=== PATIENT | female | born 1990 | race Caucasian/White ===

== ENCOUNTER 2020-08-22 23:35 | Emergency (ER) | payer OTHER ==
[~2020-08-22] VITALS: Ht 175.3 cm; Wt 65.9 kg
--- NOTE | 2020-08-23 00:02 | PHYS DOC ---
Adult General HPI HPI Patient is a 29-year-old female, who presents with a chief complaint of 4 days of fatigue, muscle aches nausea and abdominal cramping. States that she got her second Covid vaccination 4 days ago and it started shortly after that. States she is felt warm at home but has not taken her temperature. States she had 2 e pisodes of nausea and vomiting, nonbloody nonbilious yesterday. States she is felt nauseous since then but has not thrown up. Denies chest pain, shortness of breath, dysuria, hematuria or blood in the stool. States she is making urine and stool normally for her. States she does have a decreased appetite but has been trying to nibble on things and drink some water over the last couple of days. States she tried some Tylenol yesterday but that is all the medicine she is taking. States she is on control and has not had a. In well over a year. Denies any alcohol or drug use. Review of Systems Review of Systems Review of systems otherwise unremarkable except noted in HPI Physical Exam Physical Exam Constitutional: Well developed, well nourished, no acute distress, non-toxic appearance. [] HENT: Normocephalic, atraumatic, oropharynx dry, no oral exudates, nose normal. [] Eyes: conjunctiva normal, no discharge. [] Neck: Normal range of motion, no tenderness, Cardiovascular: Sinus tachycardia Lungs & Thorax: Bilateral breath sounds clear to auscultation [] Abdomen: Bowel sounds normal, patient's belly is soft except for a spot just inferior to umbilicus, there is an area of tenderness and appears to be a mass of some sort Skin: Warm, dry, no erythema, no rash. [] Back: No tenderness, no CVA tenderness. [] Extremities: No tenderness, no cyanosis, no clubbing, ROM intact, no edema. [] Neurologic: Alert and oriented X 3, normal motor function, normal sensory function, no focal deficits noted. [] Psychologic: Affect normal, judgement normal, mood normal. [] Current Patient Data Lab Results Laboratory Tests Test 08/22/20 23:45 08/23/20 00:15 08/23/20 00:40 Urine Collection Type Unknown Urine Color Yellow Urine Clarity Clear Urine pH 7.0 Urine Specific [place] 1.010 Urine Protein Neg (NEG-TRACE) Urine Glucose (UA) Neg mg/dL (NEG) Urine Ketones (Stick) 15 mg/dL (NEG) Urine Blood Neg (NEG) Urine Nitrite Neg (NEG) Urine Bilirubin Neg (NEG) Urine Urobilinogen Dipstick 0.2 mg/dL (0.2 mg/dL) Urine Leukocyte Esterase Trace (NEG) Urine RBC 0 /HPF (0-2) Urine WBC 5-10 /HPF (0-4) Urine Squamous Epithelial Cells Few /LPF Urine Bacteria Few /HPF (0-FEW) Bedside Urine HCG, Qualitative hcg negative (Negative) White Blood Count 8.6 x10^3/uL (4.0-11.0) Red Blood Count 5.07 x10^6/uL (3.50-5.40) Hemoglobin 15.3 g/dL (12.0-15.5) Hematocrit 44.3 % (36.0-47.0) Mean Corpuscular Volume 87 fL (79-100) Mean Corpuscular Hemoglobin 30 pg (25-35) Mean Corpuscular Hemoglobin Concent 35 g/dL (31-37) Red Cell Distribution Width 12.1 % (11.5-14.5) Platelet Count 217 x10^3/uL (140-400) Neutrophils (%) (Auto) 74 % (31-73) Lymphocytes (%) (Auto) 18 % (24-48) Monocytes (%) (Auto) 7 % (0-9) Eosinophils (%) (Auto) 1 % (0-3) Basophils (%) (Auto) 0 % (0-3) Neutrophils # (Auto) 6.4 x10^3uL (1.8-7.7) Lymphocytes # (Auto) 1.5 x10^3/uL (1.0-4.8) Monocytes # (Auto) 0.6 x10^3/uL (0.0-1.1) Eosinophils # (Auto) 0.0 x10^3/uL (0.0-0.7) Basophils # (Auto) 0.0 x10^3/uL (0.0-0.2) Sodium Level 140 mmol/L (136-145) Potassium Level 3.3 mmol/L (3.5-5.1) Chloride Level 103 mmol/L (98-107) Carbon Dioxide Level 25 mmol/L (21-32) Anion Gap 12 (6-14) Blood Urea Nitrogen 7 mg/dL (7-20) Creatinine 0.8 mg/dL (0.6-1.0) Estimated GFR (Cockcroft-Gault) 85.4 Glucose Level 104 mg/dL (70-99) Calcium Level 9.5 mg/dL (8.5-10.1) EKG EKG [] Radiology/Procedures Radiology/Procedures []FINDINGS: Visualized portions of the lung bases are clear. Heart size is within normal limits. No suspicious hepatic masses are identified. Liver is homogeneous in enhancement with 2.5 cm medial segment left hepatic lobe simple cyst. There is an indeterminate hypoattenuating lesion measuring 9 mm in the posterior right hepatic lobe (series 2, image 23).. Spleen, adrenal glands, pancreas and gallbladder are normal in appearance. The kidneys enhance symmetrically. There is no suspicious renal mass. There is no hydronephrosis. There are no suspected calculi within the kidneys, ureters or urinary bladder. The abdominal aorta is normal in course and caliber. There are no pathologically enlarged lymph nodes in the abdomen and pelvis. There is no abdominal free fluid. There is no free intraperitoneal air. Small volume pelvic free fluid. This is normal in appearance. Follicular changes are identified in the adnexa. Small and large bowel are normal in caliber. There is no evidence for bowel obstruction. There are no pericolonic inflammatory changes. A normal, nondilated appendix is visualized without adjacent inflammatory changes. No suspicious osseous abnormality is identified. IMPRESSION: 1. Trace free fluid within the pelvis may be physiologic. Follicular changes are identified the adnexa bilaterally. 2. Appendix is normal in appearance. 3. Indeterminate hypoattenuating lesion in the right hepatic lobe measuring 9 mm. Further characterization with abdominal MRI with and without contrast could be of benefit. Differential considerations include hemangioma or hepatic adenoma. There is additional simple cyst in the medial segment left hepatic lobe. Electronically signed by: Zeynep Archibald MD (08/23/2020 1:23 AM) [facility] Heart Score Risk Factors: Risk Factors: DM, Current or recent (<one month) smoker, HTN, HLP, family history of CAD, obesity. Risk Scores: Risk Factors: DM, Current or recent (<one month) smoker, HTN, HLP, family history of CAD, obesity. Course & Med Decision Making Course & Med Decision Making Patient is a 29-year-old female who presents with 4 days of fatigue, myalgias, nausea and vomiting and abdominal cramping Vital signs notable for tachycardia. Physical exam noted above. Patient placed on the monitor with IV access established and IV fluid began. Given Zofran for nausea and morphine for pain. Laboratory analysis not concerning. CT of the abdomen with no acute process did show some physiologic fluid in the pelvis and some adnexal follicular change but otherwise unremarkable. On reassessment patient stated she felt 100% better and felt safe to discharge home. Discussed all findings with patient and family. Advised calling [facility] today to discuss adnexal/follicular changes and given printout of CT. Advised to call primary care physician as well to make a follow-up appointment. Advised to come back to the ED with new or concerning symptoms. Family grateful, verbalized understanding and agreed with plan of ashok de la o. [] Dragon Disclaimer Dragon Disclaimer This electronic medical record was generated, in whole or in part, using a voice recognition dictation system. Departure Departure: Impression: Primary Impression: Abdominal pain Additional Impressions: Fatigue Myalgia Nausea & vomiting Disposition: 01 DC HOME SELF CARE/HOMELESS Condition: GOOD Referrals: KARINA ODONNELL DO (PCP) Patient Instructions: Abdominal Pain (Nonspecific) Additional Instructions: Please read the attached information. As discussed, please call your [facility] first thing this morning to discuss ED visit and set up a post ER follow-up visit to discuss CT findings. You are given copy of your CT report. Over the next couple of days please eat a light clear diet and stay well-hydrated. Please also contact your primary care physician to set up a post ER follow-up visit. Please come back to the emergency department immediately with any new or concerning symptoms. Problem Qualifiers ROYS JOHNS MD Aug 23, 2020 00:01
[2020-08-23] MEDS ORDERED: IV RINGERS SOLUTION,LACTATED 1,000 ML IV ONE (00:30)
[2020-08-23] MEDS ORDERED: ONDANSETRON PF 4 MG/2 ML VIAL. IVP ONE (00:30)
[2020-08-23] MEDS: MORPHINE SULFATE 4 MG/ML DISP.SYRIN. IV ONE ×2 (00:30→00:42)
[2020-08-23] MEDS ORDERED: IOHEXOL 300 MG/ML 75 ML VIAL. IV ONE (00:45)
[2020-08-23] MEDS ORDERED: CONTRAST GIVEN. MC PRN (00:45)
[2020-08-23 00:53] LABS: BACTERIA,URINE FEW /HPF (0-FEW); BILIRUBIN,URINE NEG (NEG); CLARITY,URINE CLEAR; COLOR,URINE YELLOW; GLUCOSE,URINE NEG (NEG); NITRITE,URINE NEG (NEG); RBC,URINE 0 /HPF (0-2); SQUAMOUS EPITHELIAL CELL,UR FEW /LPF; UROBILINOGEN,URINE 0.2 mg/dL (0.2 mg/dL)
[2020-08-23 01:01] LABS: BASO % 0 % (0-3); EOS % 1 % (0-3); HEMATOCRIT 44.3 % (36.0-47.0); HEMOGLOBIN 15.3 g/dL (12.0-15.5); LYMPH # 1.5 x10^3/uL (1.0-4.8); LYMPH % 18 % (24-48); MEAN CORPUSCULAR HEMOGLOBIN 30 pg (25-35); MEAN CORPUSCULAR HGB CONC 35 g/dL (31-37); MEAN CORPUSCULAR VOLUME 87 fL (79-100); MONO # 0.6 x10^3/uL (0.0-1.1); MONO % 7 % (0-9); NEUT # 6.4 x10^3uL (1.8-7.7); NEUT % 74 % (31-73); PLATELET COUNT 217 x10^3/uL (140-400); RED BLOOD COUNT 5.07 x10^6/uL (3.50-5.40); RED CELL DISTRIBUTION WIDTH 12.1 % (11.5-14.5); WHITE BLOOD COUNT 8.6 x10^3/uL (4.0-11.0)
[2020-08-23 01:08] LABS: CALCIUM 9.5 mg/dL (8.5-10.1); CREATININE 0.8 mg/dL (0.6-1.0); GFR 85.4; POTASSIUM 3.3 mmol/L (3.5-5.1)
--- NOTE | 2020-08-23 01:25 | RAD ---
PQRS Compliance Statement: One or more of the following individualized dose reduction techniques were utilized for this examinat ion: 1. Automated exposure control 2. Adjustment of the mA and/or kV according to patient size 3. Use of iterative reconstruction technique CT abdomen/pelvis with contrast 08/23/2020 12:52 AM INDICATION: Abdominal pain COMPARISON: None available TECHNIQUE: Multiple axial CT images of the abdomen and pelvis were obtained after the intravenous adm inistration of 75 mL Omnipaque 300. Coronal and sagittal reformats are provided. FINDINGS: Visualized portions of the lung bases are clear. Heart size is within normal limits. No suspicious hepatic masses are identified. Liver is homogeneous in enhancement with 2.5 cm medial s egment left hepatic lobe simple cyst. There is an indeterminate hypoattenuating lesion measuring 9 mm in the posterior right hepatic lobe (series 2, image 23).. Spleen, adrenal glands, pancreas and gall bladder are normal in appearance. The kidneys enhance symmetrically. There is no suspicious renal mas s. There is no hydronephrosis. There are no suspected calculi within the kidneys, ureters or urinary bladder. The abdominal aorta is normal in course and caliber. There are no pathologically enlarged ly mph nodes in the abdomen and pelvis. There is no abdominal free fluid. There is no free intraperitone al air. Small volume pelvic free fluid. This is normal in appearance. Follicular changes are identifi ed in the adnexa. Small and large bowel are normal in caliber. There is no evidence for bowel obstruc tion. There are no pericolonic inflammatory changes. A normal, nondilated appendix is visualized with out adjacent inflammatory changes. No suspicious osseous abnormality is identified. IMPRESSION: 1. Trace free fluid within the pelvis may be physiologic. Follicular changes are identified the adnex a bilaterally. 2. Appendix is normal in appearance. 3. Indeterminate hypoattenuating lesion in the right hepatic lobe measuring 9 mm. Further characteriz ation with abdominal MRI with and without contrast could be of benefit. Differential considerations i nclude hemangioma or hepatic adenoma. There is additional simple cyst in the medial segment left hepa tic lobe. Electronically signed by: Zeynep Archibald MD (08/23/2020 1:23 AM) [facility]
[2020-08-23 02:00] VITALS: BP 111/69
== END 2020-08-23 02:25 | disposition home or self-care (01) ==
LOC: ER 23:35
DX: R53.83 Other fatigue (principal); M79.10 Myalgia, unspecified site; R10.13 Epigastric pain
CPT/HCPCS: 36415; 74177; 80048; 81001; 81025; 85025; 87086; 96361; 96374; 99285; J2405; J7120; Q9967; J2270

== ENCOUNTER 2020-08-25 07:37 | Emergency (ER) | payer OTHER ==
[~2020-08-25] VITALS: Ht 175.3 cm; Wt 66.8 kg
[2020-08-25 07:37] VITALS: BP 138/67
--- NOTE | 2020-08-25 08:00 | PHYS DOC ---
Past History Past Medical History: Asthma Past Surgical History: No Surgical History Alcohol Use: None General Adult EDM: Chief Complaint: BLOODY STOOL HPI: HPI: History gained from patient. Patient is a 29-year-old female with history of asthma who presents with chief complaint of blood in stool. Patient states she received a Covid vaccine 6 days prior to arrival. States since then she has had fatigue and body aches. She notes she had 2 episodes of nonbloody nonbilious emesis 4 days ago. She states she presented to our emergency department 2 days ago due to abdominal cramping and vomiting. She states CT imaging at that time was unremarkable. They did note an incidental hepatic lesion. She states that she is feeling better and able to go home. She states that this morning she had 2 episodes of small dark red jellylike stools. She states that her abdominal pain seems to improve today. Denies nausea or vomiting today. Denies fevers. Denies history of blood in stool. Spoke with her PCP who instructed her to report to emergency department. Denies history of colonoscopy. Denies family history colon cancer. She denies lightheadedness or syncope. Does not take blood thinners. Denies any pain with bowel movement. Denies any history of GERD or peptic ulcer disease. No other complaints. Review of Systems: Review of Systems: Constitutional: Denies fever or chills Eyes: Denies change in visual acuity HENT: Denies nasal congestion or sore throat Respiratory: Denies cough or shortness of breath Cardiovascular: Denies chest pain or edema GI: Positive for blood in stool : Denies dysuria Musculoskeletal: Denies back pain or joint pain Integument: Denies rash Neurologic: Denies headache, focal weakness or sensory changes Endocrine: Denies polyuria or polydipsia Lymphatic: Denies swollen glands Psychiatric: Denies depression or anxiety Allergies: Allergies: Allergies Coded Allergies Type Severity Reaction Last Updated Verified oseltamivir Allergy Unknown 08/23/20 Yes prednisone Adverse Reaction Unknown 08/23/20 Yes Physical Exam: PE: Constitutional: Well developed, well nourished, no acute distress, non-toxic appearance. [] HENT: Normocephalic, atraumatic, bilateral external ears normal, oropharynx moist, no oral exudates, nose normal. [] Eyes: PERRLA, EOMI, conjunctiva normal, no discharge. [] Neck: Normal range of motion, no tenderness, supple, no stridor. [] Cardiovascular:Heart rate regular rhythm, no murmur [] Lungs & Thorax: Bilateral breath sounds clear to auscultation [] Abdomen: Soft, nontender, nonacute abdomen. No involuntary guarding or rigidity noted. No acute peritonitis. Skin: Warm, dry, no erythema, no rash. [] Back: No tenderness, no CVA tenderness. [] Extremities: No tenderness, no cyanosis, no clubbing, ROM intact, no edema. [] Neurologic: Alert and oriented X 3, normal motor function, normal sensory function, no focal deficits noted. [] Psychologic: Affect normal, judgement normal, mood normal. [] Current Patient Data: Labs: Laboratory Tests Test 08/25/20 08:10 08/25/20 08:15 Urine Collection Type Unknown Urine Color Yellow Urine Clarity Cloudy Urine pH 7.0 Urine Specific [place] 1.015 Urine Protein Neg Urine Glucose (UA) Neg mg/dL Urine Ketones (Stick) 80 mg/dL Urine Blood Trace Urine Nitrite Neg Urine Bilirubin Neg Urine Urobilinogen Dipstick 0.2 mg/dL Urine Leukocyte Esterase Small Urine RBC 3-5 /HPF Urine WBC 5-10 /HPF Urine Squamous Epithelial Cells Many /LPF Urine Bacteria Many /HPF Urine Mucus Mod /LPF White Blood Count 7.1 x10^3/uL Red Blood Count 5.22 x10^6/uL Hemoglobin 15.6 g/dL Hematocrit 45.6 % Mean Corpuscular Volume 88 fL Mean Corpuscular Hemoglobin 30 pg Mean Corpuscular Hemoglobin Concent 34 g/dL Red Cell Distribution Width 12.4 % Platelet Count 254 x10^3/uL Neutrophils (%) (Auto) 64 % Lymphocytes (%) (Auto) 29 % Monocytes (%) (Auto) 7 % Eosinophils (%) (Auto) 1 % Basophils (%) (Auto) 0 % Neutrophils # (Auto) 4.6 x10^3uL Lymphocytes # (Auto) 2.0 x10^3/uL Monocytes # (Auto) 0.5 x10^3/uL Eosinophils # (Auto) 0.0 x10^3/uL Basophils # (Auto) 0.0 x10^3/uL Sodium Level 141 mmol/L Potassium Level 3.3 mmol/L Chloride Level 102 mmol/L Carbon Dioxide Level 27 mmol/L Anion Gap 12 Blood Urea Nitrogen 6 mg/dL Creatinine 0.8 mg/dL Estimated GFR (Cockcroft-Gault) 85.4 BUN/Creatinine Ratio 8 Glucose Level 97 mg/dL Calcium Level 9.4 mg/dL Total Bilirubin 0.7 mg/dL Aspartate Amino Transf (AST/SGOT) 38 U/L Alanine Aminotransferase (ALT/SGPT) 63 U/L Alkaline Phosphatase 75 U/L Total Protein 8.0 g/dL Albumin 4.2 g/dL Albumin/Globulin Ratio 1.1 Current Medications Medications (Trade) Dose Ordered Sig/Alesha Route PRN Reason Start Time Stop Time Status Last Admin Dose Admin Iohexol (Omnipaque 300 Mg/ml) 75 ml 1X ONCE IV 08/25/20 08:15 08/25/20 08:16 DC Dicyclomine HCl (Bentyl) 20 mg 1X ONCE PO 08/25/20 08:45 08/25/20 08:46 DC 08/25/20 08:44 Vital Signs: Vital Signs Date Time Temp Pulse Resp B/P (MAP) Pulse Ox O2 Delivery O2 Flow Rate FiO2 08/25/20 07:37 98.0 78 18 138/67 (90) 98 Room Air EKG: EKG: [] Radiology/Procedures: Radiology/Procedures: [] Heart Score: Risk Factors: Risk Factors: DM, Current or recent (<one month) smoker, HTN, HLP, family history of CAD, obesity. Risk Scores: Score 0 - 3: 2.5% MACE over next 6 weeks - Discharge Home Score 4 - 6: 20.3% MACE over next 6 weeks - Admit for Clinical Observation Score 7 - 10: 72.7% MACE over next 6 weeks - Early Invasive Strategies Course & Med Decision Making: Course & Med Decision Making Pertinent Labs and Imaging studies reviewed. (See chart for details) [] Patient is a well-appearing 29-year-old female who presents with chief complaint of abdominal cramping and 2 episodes of black stool. Initial vital signs normal. Extensive chart review performed. Patient was recently seen her facility 2 days ago[address] Labs and CT imaging were obtained. No acute etiology could be identified regarding her abdominal discomfort. She was noted of an incidental hepatic lesion. negative at that time. She returns today with 2 episodes of small black stool. She does tell me on further questioning that she has been taking Pepto-Bismol recently. Furthermore she also notes that she stopped taking her oral contraceptive medication within the past week. Her black stools could related to Pepto-Bismol use. Furthermore her abdominal cramping could be related to change in oral contraceptive use. Basic labs were obtained were grossly unremarkable. Normal hemoglobin. No leukocytosis. Chemistry panel grossly unremarkable. Very mild transaminitis. No suspicion for gallbladder etiology. Patient's abdominal exam today is benign. I did discuss results of labs with her. I did discuss the possibility of deferring CAT scan imaging given her benign exam, reassuring vitals, reassuring labs. Furthermore, her black stool could be related to her Pepto-Bismol use. Patient is in agreement with this. She states she would prefer to defer CT imaging. Overall do feel this is reasonable. She has tolerated p.o. Return precautions were discussed and understood. She was encouraged to follow-up with her primary care provider. Patient stable for discharge home. [place] Disclaimer: [place] Disclaimer: This electronic medical record was generated, in whole or in part, using a voice recognition dictation system. Departure Departure: Impression: Primary Impression: Abdominal pain Qualified Codes: R10.84 - Generalized abdominal pain Additional Impression: Dark stools Disposition: 01 DC HOME SELF CARE/HOMELESS Condition: GOOD Referrals: KARINA ODONNELL DO (PCP) Additional Instructions: Discharge Abdominal Pain Re-Check Precautions: I'm unsure of the specific cause of your abdominal pain. However, at this point I feel that you are low risk for a life threatening emergency and that discharge from the Emergency Department is safe. There is a very small possibility that you are just too early in your clinical course for our physical exam/labs/imaging to ascertain whether or not you have an emergent condition that could potentially cause permanent disability or be life threatening. As such, it is very important that you follow up with your primary doctor or return to the Emergency Department in 12-24 hours for re-assessment and further evaluation if clinically indicated. If you develop new or worsening symptoms then you should return to the Emergency Department immediately. Home Care Instructions: Abdominal Pain Many things may cause abdominal pain. Your ER visit might not show the exact reason you are having pain. In some cases, additional time is needed to determine if the cause is serious. Therefore you may be told to go home and watch for any changes or worsening in your condition. Before that, we may not know if you need more testing, or if hospitalization or surgery is necessary. If its not something serious, the pain may go away without treatment or get better with simple things like avoiding certain foods or medications. In the ER, your doctor asks you questions, examines you and in some cases, may order tests. These help doctors decide if the pain is from something serious. Tests are not always done and may not provide a definite answer. There can still be a problem, even with normal test results. Abdominal pain may be caused by something serious (like appendicitis), which is not obvious right away. Because of this, another checkup is needed to make sure you are OK. It is VERY IMPORTANT to follow up for a repeat exam, especially if you have any symptoms that are not going away or are getting worse. We recommend that you RETURN TO THE EMERGENCY ROOM IN 8-12 HOURS to be rechecked . If you cannot, you may follow up with your primary care doctor or clinic. It is important that you follow all of the instructions below. RETURN TO THE EMERGENCY ROOM IMMEDIATELY IF: The pain does not go away or gets worse. You have a fever. You keep throwing up and cannot keep anything down. You pass bloody or black stools. You develop new symptoms. HOME CARE INSTRUCTIONS Come back to the ER (or see your doctor) in 8-12 hours. DO NOT take laxatives unless directed by your doctor. Avoid the use of alcohol Take pain medicine only as directed by your doctor. Only take [id number]-monutad or prescription medicine as directed by your doctor. Try a clear liquid diet (broth, tea, jello, water) for the next 12-24 hours. Slowly move to a bland diet as tolerated. Do not eat greasy, fatty or spicy foods. Once you start getting better, go back to a normal, healthy diet, slowly over a few days. DISCHARGE PT INSTRUCTIONS: YOU HAVE BEEN EVALUATED FOR ABDOMINAL PAIN. HOWEVER, WE ARE UNABLE TO PROVIDE A DEFINITE CAUSE OF YOUR SYMPTOMS. EVEN THOUGH YOUR TESTS MAY HAVE BEEN NORMAL, YOU STILL COULD HAVE A SERIOUS CAUSE FOR YOUR ABDOMINAL PAIN, INCLUDING APPENDICITIS. THE BEST TEST TO DETERMINE IF YOU HAVE A SERIOUS CAUSE IS RE-EXAMINATION OVER TIME. WE USED TO ADMIT PATIENTS TO THE HOSPITAL FOR THIS, BUT CAN NOW ALLOW YOU TO GO HOME, & RETURN TO OUR ER THE NEXT DAY FOR RE- EXAMINATION. THUS, WE WOULD LIKE YOU TO RETURN TO OUR ER TOMORROW FOR YOUR RE- EVALUATION. (IF YOUR SYMPTOMS HAVE GONE AWAY, THEN YOU DO NOT NEED TO RETURN.) IF YOUR SYMPTOMS GET WORSE BETWEEN NOW & THEN, YOU SHOULD RETURN IMMEDIATELY & NOT WAIT UNTIL TOMORROW. SYMPTOMS TO LOOK FOR WORSENING PAIN, HIGH FEVER, PERSISTENT VOMITING [NOT CONTROLLED BY MEDICINE], AND/OR OVERALL WORSENING OF YOUR CONDITION. Scripts Dicyclomine Hcl (DICYCLOMINE HCL) 20 Mg Tablet 20 MG PO QIDPRN PRN for PAIN, #16 TAB Prov: GEORGIA BURDEN DO 08/25/20 GEORGIA BURDEN DO Aug 25, 2020 08:00
[2020-08-25] MEDS ORDERED: IOHEXOL 300 MG/ML 75 ML VIAL. IV ONE (08:15)
[2020-08-25 08:33] LABS: BASO % 0 % (0-3); EOS % 1 % (0-3); HEMATOCRIT 45.6 % (36.0-47.0); HEMOGLOBIN 15.6 g/dL (12.0-15.5); LYMPH % 29 % (24-48); MEAN CORPUSCULAR HEMOGLOBIN 30 pg (25-35); MEAN CORPUSCULAR HGB CONC 34 g/dL (31-37); MEAN CORPUSCULAR VOLUME 88 fL (79-100); MONO # 0.5 x10^3/uL (0.0-1.1); MONO % 7 % (0-9); NEUT # 4.6 x10^3uL (1.8-7.7); NEUT % 64 % (31-73); PLATELET COUNT 254 x10^3/uL (140-400); RED BLOOD COUNT 5.22 x10^6/uL (3.50-5.40); RED CELL DISTRIBUTION WIDTH 12.4 % (11.5-14.5); WHITE BLOOD COUNT 7.1 x10^3/uL (4.0-11.0)
[2020-08-25 08:42] LABS: CALCIUM 9.4 mg/dL (8.5-10.1); CREATININE 0.8 mg/dL (0.6-1.0); GFR 85.4; POTASSIUM 3.3 mmol/L (3.5-5.1)
[2020-08-25 08:43] LABS: BACTERIA,URINE MANY /HPF (0-FEW); BILIRUBIN,URINE NEG (NEG); CLARITY,URINE CLOUDY; COLOR,URINE YELLOW; GLUCOSE,URINE NEG (NEG); NITRITE,URINE NEG (NEG); SQUAMOUS EPITHELIAL CELL,UR MANY /LPF; UROBILINOGEN,URINE 0.2 mg/dL (0.2 mg/dL)
[2020-08-25] MEDS ORDERED: DICYCLOMINE HCL 20 MG TABLET PO ONE (08:45)
[2020-08-25 08:50] LABS: ALBUMIN 4.2 g/dL (3.4-5.0); ALBUMIN/GLOBULIN RATIO 1.1 (1.0-1.7); TOTAL BILIRUBIN 0.7 mg/dL (0.2-1.0)
[2020-08-25] MEDS ORDERED: DICY20TA3 PO (09:05)
[2020-08-25 09:24] LABS: FECAL OB PT NEGATIVE (NEG)
== END 2020-08-25 09:40 | disposition home or self-care (01) ==
LOC: ER 07:37
DX: R10.84 Generalized abdominal pain (principal); K92.1 Melena; R53.83 Other fatigue; R11.10 Vomiting, unspecified; J45.909 Unspecified asthma, uncomplicated
CPT/HCPCS: 36415; 80053; 81001; 82274; 85025; 99283

== ENCOUNTER 2021-03-08 01:51 | Emergency (ER) | payer OTHER ==
[~2021-03-08] VITALS: Ht 175.3 cm; Wt 65.7 kg
[~2021-03-08 01:51] MED LIST: DICY20TA3 PO
[2021-03-08 02:00] VITALS: BP 119/86
--- NOTE | 2021-03-08 02:39 | PHYS DOC ---
Past History Past Medical History: Asthma Past Surgical History: No Surgical History Alcohol Use: None General Adult EDM: Chief Complaint: MULTIPLE COMPLAINTS HPI: HPI: 30-year-old female presents with nausea and vomiting. The patient's been feeling fatigued yesterday and today. She woke up from sleep last night with nausea and vomiting. She took Zofran at home but continued to have at least one other episode of emesis and is still nauseous. Patient has been taking Flagyl for bacterial vaginosis and has been feeling a little off since starting the medication. She denies fever or chills. She has no diarrhea, dysuria, increased urinary frequency. She does have some right lower quadrant discomfort. Review of Systems: Review of Systems: Constitutional: Denies fever or chills Eyes: Denies change in visual acuity HENT: Denies nasal congestion or sore throat Respiratory: Denies cough or shortness of breath Cardiovascular: Denies chest pain or edema GI: Right lower quadrant abdominal pain, nausea, vomiting. : Denies dysuria Musculoskeletal: Denies back pain or joint pain Integument: Denies rash Neurologic: Denies headache, focal weakness or sensory changes Endocrine: Denies polyuria or polydipsia Lymphatic: Denies swollen glands Psychiatric: Denies depression or anxiety Current Medications: Current Meds: Current Medications Medications (Trade) Dose Ordered Sig/Alesha Start Time Stop Time Status Last Admin Dose Admin Diphenhydramine HCl (Benadryl) 50 mg 1X ONCE 03/08/21 02:45 03/08/21 02:46 UNV Allergies: Allergies: Allergies Coded Allergies Type Severity Reaction Last Updated Verified oseltamivir Allergy Unknown 08/23/20 Yes prednisone Adverse Reaction Unknown 08/23/20 Yes Physical Exam: PE: Constitutional: Well developed, well nourished, no acute distress, non-toxic appearance. [] HENT: Normocephalic, atraumatic, bilateral external ears normal, oropharynx moist, no oral exudates, nose normal. [] Eyes: PERRLA, EOMI, conjunctiva normal, no discharge. [] Neck: Normal range of motion, no tenderness, supple, no stridor. [] Cardiovascular:Heart rate regular rhythm, no murmur [] Lungs & Thorax: Bilateral breath sounds clear to auscultation [] Abdomen: Bowel sounds normal, soft, right lower quadrant tenderness, no masses, no pulsatile masses. [] Skin: Warm, dry, no erythema, no rash. [] Back: No tenderness, no CVA tenderness. [] Extremities: No tenderness, no cyanosis, no clubbing, ROM intact, no edema. [] Neurologic: Alert and oriented X 3, normal motor function, normal sensory function, no focal deficits noted. [] Psychologic: Affect normal, judgement normal, mood normal. [] Current Patient Data: Vital Signs: Vital Signs Date Time Temp Pulse Resp B/P (MAP) Pulse Ox O2 Delivery O2 Flow Rate FiO2 03/08/21 02:00 98.5 76 22 119/86 98 Room Air EKG: EKG: [] Radiology/Procedures: Radiology/Procedures: [] Impressions: PQRS Compliance Statement: One or more of the following individualized dose reduction techniques were utilized for this examination: 1. Automated exposure control 2. Adjustment of the mA and/or kV according to patient size 3. Use of iterative reconstruction technique CT ABDOMEN+PELVIS W Clinical Indication: Reason: RLQ pain, Comparison: CT abdomen and pelvis of contrast 08/23/2020. Technique: Helical CT imaging of the abdomen and pelvis is performed after 75 cc of Omnipaque 300 IV contrast. Oral contrast not administered. Findings: Lung bases clear. Cardiac size normal. There are stable small hemangiomas in segments 4/5 and 6/7 of the liver. Liver otherwise homogeneous. Gallbladder, spleen, pancreas, adrenal glands, abdominal aorta, and kidneys are normal. The stomach is unremarkable. There is no dilated small bowel. The appendix is normal. No colon wall thickening is seen. Much of the colon is decompressed. No abdominal adenopathy or free fluid. The urinary bladder is normal. Ovaries are symmetric. Uterus unremarkable. Mild pelvic free fluid. No acute bone abnormality. IMPRESSION: 1. The appendix is normal. 2. Stable hepatic hemangiomas. 3. Mild pelvic free fluid, probably physiologic. Electronically signed by: Jose Juan Henry MD (03/08/2021 4:17 AM) [facility] DICTATED AND SIGNED BY: JOSE JUAN HENRY MD DATE: 03/08/21 0409 CC: ARTEM REN DO; KARINA ODONNELL DO ~MTH0 0 Heart Score: C/O Chest Pain: N/A Risk Factors: Risk Factors: DM, Current or recent (<one month) smoker, HTN, HLP, family history of CAD, obesity. Risk Scores: Score 0 - 3: 2.5% MACE over next 6 weeks - Discharge Home Score 4 - 6: 20.3% MACE over next 6 weeks - Admit for Clinical Observation Score 7 - 10: 72.7% MACE over next 6 weeks - Early Invasive Strategies Course & Med Decision Making: Course & Med Decision Making Pertinent Labs and Imaging studies reviewed. (See chart for details) The patient's labs are unremarkable. Her urinalysis is negative for infection. She is not . Her CT scan is negative for acute findings. The patient was given Benadryl for her nausea. She is feeling better at this time. She is stable for discharge. [] Dragon Disclaimer: Dragon Disclaimer: This electronic medical record was generated, in whole or in part, using a voice recognition dictation system. Departure Departure: Impression: Primary Impression: Abdominal pain Additional Impression: Nausea & vomiting Disposition: 01 HOME / SELF CARE / HOMELESS Condition: STABLE Referrals: KARINA ODONNELL DO (PCP) Patient Instructions: Nausea and Vomiting, [id number] ARTEM REN DO Mar 08, 2021 02:39
[2021-03-08] MEDS ORDERED: diphenhydrAMINE 50 MG/ML VIAL IVP ONE (02:45)
[2021-03-08] MEDS ORDERED: IOHEXOL 300 MG/ML 75 ML VIAL. IV ONE (02:45)
[2021-03-08] MEDS ORDERED: CONTRAST GIVEN. MC PRN (03:00)
[2021-03-08 03:38] LABS: BARBITURATES NEG (NEG); BENZODIAZEPINES NEG (NEG); CANNABINOIDS NEG (NEG); COCAINE NEG (NEG); METHADONE NEG (NEG); OPIATES NEG (NEG); PHENCYCLIDINE NEG (NEG)
[2021-03-08 03:40] LABS: BACTERIA,URINE 0 /HPF (0-FEW); BILIRUBIN,URINE NEG (NEG); CLARITY,URINE CLEAR; COLOR,URINE YELLOW; GLUCOSE,URINE NEG (NEG); NITRITE,URINE NEG (NEG); RBC,URINE 0 /HPF (0-2); SQUAMOUS EPITHELIAL CELL,UR FEW /LPF; UROBILINOGEN,URINE 0.2 mg/dL (0.2 mg/dL); WBC,URINE RARE /HPF (0-4)
[2021-03-08 03:41] LABS: AMPHETAMINE/METHAMPHETAMINE NEG (NEG)
[2021-03-08 03:47] LABS: CALCIUM 8.8 mg/dL (8.5-10.1); CREATININE 0.7 mg/dL (0.6-1.0); GFR 98.9; POTASSIUM 3.5 mmol/L (3.5-5.1)
[2021-03-08 03:53] LABS: ALBUMIN 3.9 g/dL (3.4-5.0); ALBUMIN/GLOBULIN RATIO 1.3 (1.0-1.7); TOTAL BILIRUBIN 0.8 mg/dL (0.2-1.0)
--- NOTE | 2021-03-08 04:19 | RAD ---
PQRS Compliance Statement: One or more of the following individualized dose reduction techniques were utilized for this examinat ion: 1. Automated exposure control 2. Adjustment of the mA and/or kV according to patient size 3. Use of iterative reconstruction technique CT ABDOMEN+PELVIS W Clinical Indication: Reason: RLQ pain, Comparison: CT abdomen and pelvis of contrast 08/23/2020. Technique: Helical CT imaging of the abdomen and pelvis is performed after 75 cc of Omnipaque 300 IV contrast. Oral contrast not administered. Findings: Lung bases clear. Cardiac size normal. There are stable small hemangiomas in segments 4/5 and 6/7 of the liver. Liver otherwise homogeneous. Gallbladder, spleen, pancreas, adrenal glands, abdominal aorta, and kidneys are normal. The stomach is unremarkable. There is no dilated small bowel. The appendix is normal. No colon wall t hickening is seen. Much of the colon is decompressed. No abdominal adenopathy or free fluid. The urinary bladder is normal. Ovaries are symmetric. Uterus unremarkable. Mild pelvic free fluid. No acute bone abnormality. IMPRESSION: 1. The appendix is normal. 2. Stable hepatic hemangiomas. 3. Mild pelvic free fluid, probably physiologic. Electronically signed by: Jose Juan Garg MD (03/08/2021 4:17 AM) [facility]
[2021-03-08 04:28] LABS: BASO % 0 % (0-3); EOS % 0 % (0-3); HEMATOCRIT 41.5 % (36.0-47.0); HEMOGLOBIN 14.2 g/dL (12.0-15.5); LYMPH % 11 % (24-48); MEAN CORPUSCULAR HEMOGLOBIN 31 pg (25-35); MEAN CORPUSCULAR HGB CONC 34 g/dL (31-37); MEAN CORPUSCULAR VOLUME 89 fL (79-100); MONO # 0.3 x10^3/uL (0.0-1.1); MONO % 3 % (0-9); NEUT # 7.8 x10^3uL (1.8-7.7); NEUT % 86 % (31-73); PLATELET COUNT 197 x10^3/uL (140-400); RED BLOOD COUNT 4.67 x10^6/uL (3.50-5.40); RED CELL DISTRIBUTION WIDTH 12.3 % (11.5-14.5); WHITE BLOOD COUNT 9.1 x10^3/uL (4.0-11.0)
== END 2021-03-08 04:49 | disposition home or self-care (01) ==
LOC: ER 01:51
DX: R11.2 Nausea with vomiting, unspecified (principal); R10.31 Right lower quadrant pain; R53.83 Other fatigue; J45.909 Unspecified asthma, uncomplicated; Z88.8 Allergy status to other drugs, medicaments and biological substances
CPT/HCPCS: 36415; 74177; 80053; 80307; 81001; 81025; 85025; 96374; 99285; J1200; Q9967

== ENCOUNTER 2021-03-10 11:07 | Emergency (ER) | payer OTHER ==
[~2021-03-10] VITALS: Ht 175.3 cm; Wt 65.7 kg
[2021-03-10] MEDS ORDERED: IV NORMAL SALINE 1,000ML 1,000 ML IV ONE (13:15)
[2021-03-10] MEDS ORDERED: ONDANSETRON PF 4 MG/2 ML VIAL. IVP ONE (13:15)
[2021-03-10] MEDS ORDERED: KETOROLAC 15 MG/ML VIAL. IVP ONE (13:15)
--- NOTE | 2021-03-10 13:20 | PHYS DOC ---
Past History Past Medical History: Asthma (ERMIAS SIFUENTES APRN) Past Surgical History: No Surgical History (ERMIAS SIFUENTES APRN) Alcohol Use: Rarely (ERMIAS SIFUENTES APRN) Adult General Chief Complaint Chief Complaint: ABDOMINAL PAIN [facility] HPI Patient is a 30-year-old female patient presents with abdominal pain. Patient reports she had been seen in this facility 2 days ago for the similar symptoms. States she had been evaluated labs and imaging, without acute findings. States she had felt better the next day, however this morning the discomfort returned more severe. States her discomfort has seemed to move up from her lower right quadrant to her right upper quadrant. States she has similar symptoms in August of this year, after her second Covid shot, she had been prescribed Bentyl, was helped her discomfort. She had tried his Zofran and Bentyl this morning however had no improvement in her symptoms. States she just feels nauseous. States she has had some diarrhea. States she is not able to eat anything other than oatmeal for the last couple days. States she does not have menstrual cycles due to her control (ERMIAS SIFUENTES APRN) Review of Systems Review of Systems Constitutional: Denies fever or chills [] reports fatigue, malaise Eyes: Denies change in visual acuity, redness, or eye pain [] HENT: Denies nasal congestion or sore throat [] Respiratory: Denies cough or shortness of breath [] Cardiovascular: No additional information not addressed in HPI [] GI: Denies bloody stools [] states she has had some abdominal pain, right upper right lower quadrant. States nausea, states vomiting and diarrhea. : Denies dysuria or hematuria [] Musculoskeletal: Denies back pain or joint pain [] Integument: Denies rash or skin lesions [] Neurologic: Denies headache, focal weakness or sensory changes [] Endocrine: Denies polyuria or polydipsia [] All other systems were reviewed and found to be within normal limits, except as documented in this note. (ERMIAS SIFUENTES APRN) Allergies Allergies Allergies Coded Allergies Type Severity Reaction Last Updated Verified oseltamivir Allergy Unknown 08/23/20 Yes prednisone Adverse Reaction Unknown 08/23/20 Yes (ERMIAS SIFUENTES APRN) Physical Exam Physical Exam Constitutional: Well developed, well nourished, no acute distress, non-toxic appearance. [] Appears uncomfortable HENT: Normocephalic, atraumatic, bilateral external ears normal, oropharynx moist, no oral exudates, nose normal. [] Eyes: PERRLA, EOMI, conjunctiva normal, no discharge. [] Neck: Normal range of motion, no tenderness, supple, no stridor. [] Cardiovascular:Heart rate regular rhythm, no murmur [] Lungs & Thorax: Bilateral breath sounds clear to auscultation [] Abdomen: Bowel sounds normal, soft, no masses, no pulsatile masses. [] Guarding noted to the right upper quadrant, right lower quadrant. No bruising noted. Left abdomen soft. Skin: Warm, dry, no erythema, no rash. [] Back: No tenderness, no CVA tenderness. [] Extremities: No tenderness, no cyanosis, no clubbing, ROM intact, no edema. [] Neurologic: Alert and oriented X 3, normal motor function, normal sensory function, no focal deficits noted. [] Psychologic: Affect normal, judgement normal, mood normal. [] (ERMIAS SIFUENTES APRN) Current Patient Data Vital Signs Vital Signs Date Time Temp Pulse Resp B/P (MAP) Pulse Ox O2 Delivery O2 Flow Rate FiO2 03/10/21 13:00 97.7 91 18 125/80 (95) 99 Room Air (ERMIAS SIFUENTES APRN) EKG EKG [] (ERMIAS SIFUENTES APRN) Radiology/Procedures Radiology/Procedures PATIENT: TUSHAR REID DACCOUNT: [id number]#: [id number] : 1990 LOCATION: ER AGE: 30 SEX: F EXAM STATUS: REG ER ORD. PHYSICIAN: ERMIAS SIFUENTES APRN REASON: RUQ / RLQ pain PROCEDURE: ABDOMEN COMPLETE EXAM: Abdomen sonogram. HISTORY: Right upper quadrant pain. TECHNIQUE: Sonographic imaging of the abdomen was performed. COMPARISON: None. FINDINGS: The liver is normal in size. There is a 3.1 cm circumscribed hyperechoic lesion within the right hepatic lobe, the appearance of which favors a hemangioma. The gallbladder is unremarkable. The common bile duct is normal in caliber. The kidneys, pancreas, spleen, aorta and inferior vena cava are unremarkable. IMPRESSION: 1. No acute sonographic finding. 2. 3.1 cm lesion within the right hepatic lobe, the sonographic appearance of which favors a hemangioma. Electronically signed by: Ana Quintanilla MD (03/10/2021 1:46 PM) [id number] DICTATED AND SIGNED BY: ANA QUINTANILLA MD DATE: 03/10/21 1340 CC: KARINA ODONNELL DO; ERMIAS SIFUENTES APRN ~MTH0 0 [] (ERMIAS SIFUENTES APRN) Heart Score C/O Chest Pain: N/A Risk Factors: Risk Factors: DM, Current or recent (<one month) smoker, HTN, HLP, family history of CAD, obesity. Risk Scores: Risk Factors: DM, Current or recent (<one month) smoker, HTN, HLP, family history of CAD, obesity. (ERMIAS SIFUENTES APRN) Course & Med Decision Making Course & Med Decision Making Pertinent Labs and Imaging studies reviewed. (See chart for details) Following meds, patient reports she feels much better. STates she feels good about going home at this time. []Reviewed imaging and labs with patient, without acute pathology. Patient with history of similar findings in the past, with prior use of Bentyl, will consider colonic discomfort, with discomfort ascending right side of abdomen. Recommend patient follow up with PCP for referral to GI to further evaluate abdominal concerns. Imaging results from 2 days prior show now acute process. Patient reports she had tired to call her PCP but has not heard back yet. She is agreeable to trying Levsin and follow up (ERMIAS SIFUENTES APRN) Course & Med Decision Making I was the Attending physician on the above date of service of this patient. This patient was evaluated, examined, treated, and dispositioned from the emergency department by the mid-level practitioner. Although I was working at the time , no assistance was requested. Electronically signed, Karin Garcia DO (KARIN GARCIA DO) [place] Disclaimer Dragon Disclaimer This electronic medical record was generated, in whole or in part, using a voice recognition dictation system. (ERMIAS SIFUENTES APRN) Departure Departure: Impression: Primary Impression: Abdominal pain Additional Impression: Irritable bowel syndrome Disposition: HOME / SELF CARE / HOMELESS Condition: GOOD Referrals: KARINA ODONNELL DO (PCP) Patient Instructions: Abdominal Pain, Irritable Bowel Syndrome-Brief Additional Instructions: As discussed, take the Levsin for abdominal discomfort. Try to get into see your primary care provider and see if they want to refer you to GI specialist for further evaluation of your abdominal pain Consider taking Zofran as needed for nausea and vomiting Try to stay hydrated Scripts Hyoscyamine Sulfate (LEVSIN-SL) 0.125 Mg Tab.subl 0.125 MG SL Q6HRS PRN for ABDOMINAL CRAMPS, #30 TAB Prov: ERMIAS SIFUENTES APRN 03/10/21 Problem Qualifiers Primary Impression: Abdominal pain Abdominal location: generalized Qualified Codes: R10.84 - Generalized abdominal pain Additional Impression: Irritable bowel syndrome Irritable bowel syndrome type: with diarrhea Qualified Codes: K58.0 - Irritable bowel syndrome with diarrhea ERMIAS SIFUENTES APRN Mar 10, 2021 13:20 KARIN GARCIA DO Mar 12, 2021 06:06
--- NOTE | 2021-03-10 13:49 | RAD ---
EXAM: Abdomen sonogram. HISTORY: Right upper quadrant pain. TECHNIQUE: Sonographic imaging of the abdomen was performed. COMPARISON: None. FINDINGS: The liver is normal in size. There is a 3.1 cm circumscribed hyperechoic lesion within the right hepatic lobe, the appearance of which favors a hemangioma. The gallbladder is unremarkable. The common bile duct is normal in caliber. The kidneys, pancreas, spleen, aorta and inferior vena cava a re unremarkable. IMPRESSION: 1. No acute sonographic finding. 2. 3.1 cm lesion within the right hepatic lobe, the sonographic appearance of which favors a hemangio ma. Electronically signed by: Ana Magaña MD (03/10/2021 1:46 PM) [id number]
[2021-03-10 14:15] LABS: BACTERIA,URINE FEW /HPF (0-FEW); BILIRUBIN,URINE SMALL (NEG); CLARITY,URINE CLEAR; COLOR,URINE YELLOW; GLUCOSE,URINE NEG (NEG); NITRITE,URINE NEG (NEG); SQUAMOUS EPITHELIAL CELL,UR MANY /LPF; UROBILINOGEN,URINE 0.2 mg/dL (0.2 mg/dL)
[2021-03-10 14:44] LABS: BASO % 0 % (0-3); EOS % 0 % (0-3); HEMATOCRIT 46.2 % (36.0-47.0); HEMOGLOBIN 15.7 g/dL (12.0-15.5); LYMPH # 1.6 x10^3/uL (1.0-4.8); LYMPH % 17 % (24-48); MEAN CORPUSCULAR HEMOGLOBIN 30 pg (25-35); MEAN CORPUSCULAR HGB CONC 34 g/dL (31-37); MEAN CORPUSCULAR VOLUME 89 fL (79-100); MONO # 0.6 x10^3/uL (0.0-1.1); MONO % 7 % (0-9); NEUT # 7.1 x10^3uL (1.8-7.7); NEUT % 76 % (31-73); PLATELET COUNT 219 x10^3/uL (140-400); RED BLOOD COUNT 5.19 x10^6/uL (3.50-5.40); RED CELL DISTRIBUTION WIDTH 12.4 % (11.5-14.5); WHITE BLOOD COUNT 9.4 x10^3/uL (4.0-11.0)
[2021-03-10 14:58] LABS: CALCIUM 9.2 mg/dL (8.5-10.1); CREATININE 0.7 mg/dL (0.6-1.0); GFR 98.9; POTASSIUM 3.6 mmol/L (3.5-5.1)
[2021-03-10 15:04] LABS: ALBUMIN 4.4 g/dL (3.4-5.0); ALBUMIN/GLOBULIN RATIO 1.3 (1.0-1.7); MAGNESIUM 2.3 mg/dL (1.8-2.4); TOTAL BILIRUBIN 0.7 mg/dL (0.2-1.0); TOTAL PROTEIN 7.9 g/dL (6.4-8.2)
[2021-03-10] MEDS ORDERED: HYOS0.1265 SL (15:20)
[2021-03-10 15:38] VITALS: BP 125/71
== END 2021-03-10 15:41 | disposition home or self-care (01) ==
LOC: ER 11:07
DX: K58.9 Irritable bowel syndrome, unspecified (principal); Z88.8 Allergy status to other drugs, medicaments and biological substances
CPT/HCPCS: 36415; 76700; 80053; 81001; 81025; 83690; 83735; 85025; 87086; 96361; 96374; 96375; 99284; J1885; J2405; J7030

== ENCOUNTER → 2021-10-31 | Emergency (ER) | payer OTHER ==
[~2021-10-31] VITALS: Ht 175.3 cm; Wt 58.0 kg
[~2021-10-31] MED LIST changes: +DICY20TA PO; -DICY20TA3 PO; +HYOS0.1265 SL; +IV NORMAL SALINE 1,000ML 1,000 ML IV ONE; +POTASSIUM CHLORIDE 20 MEQ TABLET.ER. PO ONE
--- NOTE | 2021-10-31 11:22 | PHYS DOC ---
Past History Past Medical History: Asthma, Depression Past Surgical History: Cholecystectomy Smoking: Non-smoker Alcohol Use: None Drug Use: Marijuana General Adult EDM: Chief Complaint: DIZZY/LIGHT HEADED HPI: HPI: Pt is a 30 yo F who presents c/o "feeling weird" onset this morning. Pt she has not been feeling well this morning. She describes her sx as lightheaded and feeling like she might "dose off". She had a cholecystectomy last month and is still recovering from that. Pt states she was doing a lot yesterday and still is getting fatigued fairly easily since the surgery. She denies n/v/d. Denies sick contacts. Pt is amennorrheic from her control pill. Review of Systems: Review of Systems: Constitutional: Denies fever or chills; Reports lightheadedness and malaise Eyes: Denies redness or eye pain HENT: Denies nasal congestion or sore throat Respiratory: Denies cough or shortness of breath Cardiovascular: Denies chest pain or palpitations GI: Denies abdominal pain, nausea, or vomiting : Denies dysuria or hematuria Musculoskeletal: Denies back pain or joint pain Integument: Denies rash or skin lesions Neurologic: Denies headache, focal weakness or sensory changes Complete systems were reviewed and found to be within normal limits, except as documented in this note. Current Medications: Current Meds: Current Medications Medications (Trade) Dose Ordered Sig/[facility] Start Time Stop Time Status Last Admin Dose Admin Sodium Chloride 1,000 ml @ 1,000 mls/hr 1X ONCE 10/31/21 11:15 10/31/21 12:14 UNV Allergies: Allergies: Allergies Coded Allergies Type Severity Reaction Last Updated Verified oseltamivir Allergy Unknown 10/31/21 Yes prednisone Adverse Reaction Unknown 10/31/21 Yes Physical Exam: PE: Constitutional: Well developed, well nourished, no acute distress, non-toxic appearance HENT: Normocephalic, atraumatic Eyes: PERRL, EOMI, conjunctiva normal, no discharge Neck: Normal range of motion, no midline tenderness, supple Lungs & Thorax: No respiratory distress, equal chest rise and fall Abdomen: Soft, no tenderness Skin: Warm, dry, no erythema, no rash Extremities: No tenderness, ROM intact, no edema Neurologic: Alert and oriented X 3, normal motor function, normal sensory function, no focal deficits noted Psychologic: Affect normal, judgment normal Current Patient Data: Vital Signs: Vital Signs Date Time Temp Pulse Resp B/P (MAP) Pulse Ox O2 Delivery O2 Flow Rate FiO2 10/31/21 10:59 97.5 75 18 122/71 (88) 100 Room Air EKG: EKG: @[address] elevation QRS 88 QTc 411 Radiology/Procedures: Radiology/Procedures: [] Heart Score: C/O Chest Pain: N/A Course & Med Decision Making: Course & Med Decision Making Pertinent Labs and Imaging studies reviewed. (See chart for details) Pt is a 30 yo F who presents "feeling weird" with lightheadedness. Labs obtained and posted to chart. Hypokalemia addressed. EKG stable. Patient stable for discharge with outpatient follow-up with PCP. Discussed findings and plan with patient, who acknowledges understanding and agreement. [place] Disclaimer: [place] Disclaimer: This electronic medical record was generated, in whole or in part, using a voice recognition dictation system. Departure Departure: Impression: Primary Impression: Dizziness Additional Impression: Hypokalemia Disposition: HOME / SELF CARE / HOMELESS Condition: STABLE Referrals: NAHID EAGLE MD (PCP) Patient Instructions: Dizziness, [id number], Hypokalemia, Potassium Content of Foods MIHIR NICHOLSON DO Oct 31, 2021 11:22
[2021-10-31 12:05] LABS: BACTERIA,URINE 0 /HPF (0-FEW); CLARITY,URINE CLOUDY; COLOR,URINE YELLOW; GLUCOSE,URINE NEG (NEG); NITRITE,URINE NEG (NEG); RBC,URINE OCC /HPF (0-2); SQUAMOUS EPITHELIAL CELL,UR MANY /LPF; UROBILINOGEN,URINE 0.2 mg/dL (0.2 mg/dL)
[2021-10-31 12:12] LABS: BASO % 0 % (0-3); EOS % 1 % (0-3); HEMATOCRIT 46.2 % (36.0-47.0); HEMOGLOBIN 15.7 g/dL (12.0-15.5); LYMPH # 1.3 x10^3/uL (1.0-4.8); LYMPH % 21 % (24-48); MEAN CORPUSCULAR HEMOGLOBIN 31 pg (25-35); MEAN CORPUSCULAR HGB CONC 34 g/dL (31-37); MEAN CORPUSCULAR VOLUME 90 fL (79-100); MONO # 0.3 x10^3/uL (0.0-1.1); MONO % 6 % (0-9); NEUT # 4.5 x10^3uL (1.8-7.7); NEUT % 73 % (31-73); PLATELET COUNT 199 x10^3/uL (140-400); RED BLOOD COUNT 5.11 x10^6/uL (3.50-5.40); RED CELL DISTRIBUTION WIDTH 12.8 % (11.5-14.5); WHITE BLOOD COUNT 6.2 x10^3/uL (4.0-11.0)
[2021-10-31 12:15] LABS: ANION GAP 8 (6-14); BLOOD UREA NITROGEN 8 mg/dL (7-20); BUN/CREATININE RATIO 9 (6-20); CALCIUM 9.6 mg/dL (8.5-10.1); CARBON DIOXIDE 25 mmol/L (21-32); CHLORIDE 106 mmol/L (98-107); CREATININE 0.9 mg/dL (0.6-1.0); GLUCOSE 94 mg/dL (70-99); POTASSIUM 3.4 mmol/L (3.5-5.1); SODIUM 139 mmol/L (136-145)
[2021-10-31 12:31] LABS: ALBUMIN 4.3 g/dL (3.4-5.0); ALBUMIN/GLOBULIN RATIO 1.3 (1.0-1.7); ALK PHOS 84 U/L (46-116); ALT (SGPT) 22 U/L (14-59); AST (SGOT) 13 U/L (15-37); MAGNESIUM 2.1 mg/dL (1.8-2.4); TOTAL BILIRUBIN 0.9 mg/dL (0.2-1.0); TOTAL PROTEIN 7.5 g/dL (6.4-8.2)
[2021-10-31 13:01] VITALS: BP 123/77
--- NOTE | 2021-11-01 00:43 | EKG ---
[address] [address] Test Date: 2021-10-31 Test Time: 11:24:49 Pat Name: TUSHAR REID Department: Room: Gender: F Transportation Consultant: : 1990 Requested By: MIHIR NICHOLSON Order Number: [id number] Reading MD: Teja Dela Cruz Measurements Intervals [place] Rate: 71 P: 64 PA: 136 QRS: 93 QRSD: 88 T: 29 QT: 378 QTc: 411 Interpretive Statements SINUS ARRHYTHMIA RIGHTWARD AXIS Electronically Signed On 11-02-2021 18:19:52 CDT by Teja Dela Cruz
== END | disposition home or self-care (01) ==
LOC: ER 10:51
DX: E87.6 Hypokalemia (principal); R42 Dizziness and giddiness; J45.909 Unspecified asthma, uncomplicated; Z88.8 Allergy status to other drugs, medicaments and biological substances
CPT/HCPCS: 36415; 80053; 81001; 81025; 82553; 82947; 83735; 84484; 85025; 87077; 87086; 93005; 96360; 99284; J7030